=== PATIENT | female | born 1940 | race Caucasian/White ===

== ENCOUNTER 2021-09-11 08:50 | Outpatient (CLI) | payer MEDICARE, OTHER, SELFPAY ==
--- NOTE | 2021-09-11 09:30 | USCV_ITS ---
Erin Daniel Age: 81 Gender: F : 1940 Exam Date: 09/11/2021 09:23 Ordering Phys: Xuan Escalante Technologist: Rafaela Osborn Exam Location: [facility] – [place] Indication: hyperlipidemia Risk Factors: Previous Vascular Surgery: None Right Brachial BP: / Left Brachial BP: / Right Left Velocity (cm/s) Spectral Plaque Velocity (cm/s) Spectral Plaque Syst/Diast Broadening Syst/Diast Broadening 108.30/15.20 Prox CCA 88.10 / 14.50 94.00/ 9.80 Mid CCA 86.80 / 15.80 94.00/ 11.60 Distal CCA 90.70 / 21.00 79.40/ 9.90 Prox ICA 67.50 / 14.50 75.00/ 13.20 Mid ICA 69.20 / 13.70 94.80/ 17.60 Distal ICA 72.00 / 16.30 95.90 ECA 103.90 0.88 ICA/CCA 0.79 Antegrade Vertebral Antegrade 46.70/ 5.90 cm/s 52.80/ 14.40 cm/s Tri Subclavian Tri 149.9 65.30 0 FINDINGS Minimal plaques at the bifurcations and proximal internal carotid arteries bilaterally. Intimal thickening in the common carotid arteries bilaterally. Antegrade flow in the vertebral arteries bilaterally. CONCLUSIONS Minimal plaques at the bifurcations and proximal internal carotid arteries bilaterally with Doppler features consistent with less than 50% stenosis. Intimal thickening in the common carotid arteries bilaterally. Dr Aurora Main MD [facility] (Electronically Signed) Final Date: 15 September 2021 07:00 S
== END 2021-09-11 08:51 | disposition home or self-care (01) ==
PROVIDERS: PCP Family Medicine; Visit Provider Physician Assistant
DX: E78.5 Hyperlipidemia, unspecified; I65.23 Occlusion and stenosis of bilateral carotid arteries
CPT/HCPCS: 93880